=== PATIENT | male | born 1945 | race Caucasian/White ===

== ENCOUNTER 2017-01-01 11:06 | Inpatient (IN) | payer MEDICARE, OTHER ==
[~2017-01-01] VITALS: Ht 177.8 cm; Wt 88.9 kg
[2017-01-01] VITALS (20 sets, daily range): BP systolic 121–165; BP diastolic 62–97; PULSE 48–60; RESP 14–28; O2SAT 91–98
[~2017-01-01 11:06] MED LIST: AMIT10TA6 PO; ANTI1COM3 PO; ASCO-294 PO; ASPI-973 PO; ATEN100T PO; CHOL5000 PO; CYAN250010 PO; FLUT12AE8 IH; GLUC-180 PO; IPRA30SP8 NS; MECL-114 PO; METF500T4 PO; MULT1CAP33 PO; OMEP20TA86 PO; SOMA350 PO; UBID100T7 PO; [UNRECOGNIZED DRUG - CODE] PO
--- NOTE | 2017-01-01 11:27 | DRSVH ---
PROCEDURE: X-RAY CHEST ONE VIEW, PORTABLE ([id number]) INDICATIONS: CHEST PAIN TECHNIQUE: One view of the chest was acquired. COMPARISON: None. FINDINGS: Surgical changes and devices: None. Lungs and pleura: No pleural effusions or pneumothorax. Lungs are clear. Mediastinum: Mediastinal contours appear normal. Heart size is normal. Bones and chest wall: No suspicious bony lesions. Overlying soft tissues appear unremarkable. IMPRESSION: No acute pulmonary process. Dictated by: Brittany Larson M.D. on 01/01/2017 at 11:25 Approved by: Brittany Larson M.D. on 01/01/2017 at 11:25
[2017-01-01 11:30] LABS: BASOPHILS % (AUTO) 0.4 % (0-3); EOSINOPHILS % (AUTO) 3.5 % (0-5); MONOCYTES % (AUTO) 13.4 % (4-12); Mean Corpuscular Hemoglobin 30.9 pg (27.0-35.0); Mean Corpuscular Volume 87.7 fL (81-100); NEUTROPHILS % (AUTO) 67.8 % (40-74); Platelet Count 151 bil/L (150-400)
--- NOTE | 2017-01-01 11:36 | ED.REPORT ---
HPI-Chest Pain 40 and Over Date of Service Jan 01, 2017 ED Provider: Andrea Obrien MD Patient is a 71 year old male with a history of CHF, stent placement, CAD, hypertension, diabetes who presents to the ED via EMS due to an abnormal EKG. He complains of chest pain 2 days ago, dyspnea with exertion and nausea. Patient denies fever. The patient states that the pain lasted multiple minutes but resolved with rest. Patient was seen by his primary care physician earlier today who recommended he come to the ED due to his abnormal EKG. The patient states that he has not experienced another episode of chest pain since then and is currently pain free. Prior to arrival to the ED, the patient was given ASA at 1030. Nursing Notes Stated Complaint: CHEST PAIN Chief Complaint: Chest Pain Nursing Notes Reviewed: Yes Allergies: Coded Allergies: Qsqhcsg-Yqc-Ljv Reductase Inhibitor (Verified Adverse Reaction, Severe, MYALGIAS, 01/01/17) lisinopril (Unverified Adverse Reaction, Severe, COUGH, 01/01/17) lovastatin (Unverified Adverse Reaction, Severe, MYALGIAS, 01/01/17) Scheduled Alirocumab (Praluent Pen) 75 Mg/Ml Pen.injctr 75 MG SQ [id number] Antiox#12/Om3/Dha/Epa/Lut/Zean (Macular Benefits Combo Pack) 1 Each Combo..pkg 2 TAB PO BID Ascorbate Calcium (Vitamin C) 500 Mg Tablet 500 MG PO DAILY Aspirin (Aspirin) 81 Mg Tablet 81 MG PO DAILY Atenolol (Atenolol) 100 Mg Tablet 100 MG PO DAILY Cholecalciferol (Vitamin D3) (Vitamin D3) 5,000 Unit Tablet 5,000 UNIT PO DAILY Cyanocobalamin (Vitamin B-12) (Vitamin B12) 2,500 Mcg Tablet 2,500 MCG PO DAILY Disopyramide ER (Norpace CR) 150 Mg Capcr 150 MG PO BID Fluticasone Propionate (Flovent HFA 110 mcg) 12 Gm Aer.w.adap 1 PUFF IH BID Glucosamine HCl/MSM (Glucosamine MSM Liquid) 480 Ml Liquid 480 ML PO DAILY Ipratropium Bantry (Ipratropium Bantry 0.03% Nasal) 30 Ml [place] 1 SPRAY NS BID Multivitamin (Multivitamins) 1 Each Capsule 1 EACH PO DAILY Omeprazole (Omeprazole) 20 Mg Tablet.dr 20 MG PO DAILY Triamcinolone Acetonide (Nasal Allergy) 55 Mcg [place] 2 SPRAYS NS BID Ubidecarenone (Coenzyme Q10) 100 Mg Tablet 300 MG PO DAILY Scheduled PRN Carisoprodol (Carisoprodol) 350 Mg Tab 350 MG PO QID PRN PRN For Pain Meclizine (Bonine) 25 Mg Tab.chew 25 MG PO TID PRN PRN migraine General Time Seen by MD: 11:05 Chief Complaint Chest pain Hx Obtained From: Patient, EMS Arrived By: Ambulance Sudden in Onset?: Yes Onset Occurred: 2 days ago Severity: Current: No pain currently Recent Healthcare: No recent doctor visit, No recent hospitalization Similar Sx Previous: Yes Past Medical History Past Medical History prostate cancer in remission Reports: Congestive heart failure, Coronary artery disease, Diabetes mellitus, Hypertension Past Surgical History stent placement Smoking History Never Smoker Ambulatory Status Independent Review of Systems Constitutional: Denies: Chills, Fever Respiratory: Denies: Non-productive cough, Shortness of breath, Wheezing Cardiovascular: Reports: Chest pain, Dyspnea on exertion GI: Reports: Nausea, Denies: Vomiting Musculoskeletal: Denies: Extremity pain Complete sys rev & neg: except as marked. Physical Exam Initial Vital Signs Vital Signs (First) Date Time Temp Pulse Resp B/P Pulse Ox O2 Delivery O2 Flow Rate FiO2 01/01/17 11:14 36.7 57 20 165/97 98 Room Air Initial VS: Reviewed General/Constitutional: Awake, Alert, No acute distress Respiratory / Chest: Atraumatic, Breath sounds NL, Breath sounds = bilat, No respiratory distress Cardiovascular: Heart rate NL, Regular rhythm, Heart sounds NL Abdomen: Atraumatic, Soft, Non-tender Lower Extremity / Pelvis / MS: Atraumatic, No edema Skin: Atraumatic, Color NL, No rash, Warm, Dry Neurologic: Oriented X3, Speech NL, No motor deficits, No sensory deficits Psychiatric: Affect NL, Mood NL Head / Eyes: Atraumatic, Normocephalic, PERRL, EOMI Upper Extremity / MS: Atraumatic, Full range of motion Interpretation & Diagnostics Lab Results Interpretation Result Diagram: 01/01/17 1123 01/01/17 1123 Test 01/01/17 11:23 White Blood Count 7.0th/mm3 (3.8-10.1) Red Blood Count 4.88mil/mm3 (4.40-5.80) Hemoglobin 15.1g/dL (13.8-17.2) Hematocrit 42.8% (41.0-50.0) Mean Corpuscular Volume 87.7fL (81-100) Mean Corpuscular Hemoglobin 30.9pg (27.0-35.0) Mean Corpuscular Hemoglobin Concent 35.3% (32.0-37.0) Red Cell Distribution Width 13.1% (12.3-15.4) Platelet Count 151bil/L (150-400) Neutrophils (%) (Auto) 67.8% (40-74) Lymphocytes (%) (Auto) 14.0% (14-46) Monocytes (%) (Auto) 13.4% (4-12) Eosinophils (%) (Auto) 3.5% (0-5) Basophils (%) (Auto) 0.4% (0-3) Sodium Level 141mEq/L (134-144) Potassium Level 4.4mEq/L (3.5-5.2) Chloride Level 104mEq/L (97-108) Carbon Dioxide Level 22mmol/L (18-29) Blood Urea Nitrogen 24mg/dL (8-27) Creatinine 0.88mg/dL (0.76-1.27) Estimat Glomerular Filtration Rate 91mL/min (>59) Glucose Level 109mg/dL (60-99) Calcium Level 9.0mg/dL (8.5-10.1) Magnesium Level 2.2mg/dL (1.6-2.6) Total Bilirubin 0.5mg/dL (0.0-1.2) Aspartate Amino Transf (AST/SGOT) 35U/L (0-50) Alanine Aminotransferase (ALT/SGPT) 33U/L (0-44) Alkaline Phosphatase 86U/L (25-160) Troponin T 0.243ug/L (0.0-0.011) Total Protein 5.8g/dL (6.4-8.4) Albumin 3.8g/dL (3.4-5.0) Hold Lehman Top Tube Received (Received) ECG Interpretation ECG Interpretation: probable left atrial enlargement abnormal T, consider ischemia, anterolateral leads prolonged QT interval Time: 11:11 Interpreted by: ED physician Normal ECG Interpretation: Normal rate (56), Normal sinus rhythm X-Ray Chest Interpretation Chest Xray Interpretation: IMPRESSION: No acute pulmonary process. Dictated by: Brittany Larson M.D. on 01/01/2017 at 11:25 Approved by: Brittany Larson M.D. on 01/01/2017 at 11:25 View: Portable, 1 view Interpretation / Wet Read by: Interpret - Radiologist Re-Eval/Medical Decision Time of Eval: 12:19 Re-Evaluation/Progress Note: Discussed lab results and elevated trop. Discussed plan for admit. Patient understands and agrees to plan. All questions were addressed. Consultation #1: Referral / Consult Name: Emanuel Perea MD Consulted With: Cardiology Call Returned at: 11:45 Command Center Officer: Agrees with eval, Agrees with plan Consultation #2: Referral / Consult Name: Emanuel Perea MD Consulted With: Cardiology Call Returned at: 12:22 Command Center Officer: Agrees with eval, Agrees with plan Note: Consult with Dr. Castellanos, who agrees that the patient should be heparinized and given Plavix. Will consult once patient is admited with the hosptialist Consultation #3: Referral / Consult Name: David Navas MD Consulted With: Hospitalist Call Returned at: 13:05 Command Center Officer: Agrees with eval, Agrees with plan, Accepts admit Counseled Regarding: Diagnosis, Lab results, Need for admission Discharge & Departure Primary Impression: NSTEMI (non-ST elevated myocardial infarction) Additional Impression: Elevated troponin Disposition: ADMITTED TO HOSPITAL Discharge Condition All VS Reviewed: Yes Condition: Stable Referrals: Josesito Lorenzo MD (PCP) Jessica Attestation Portions of this note were transcribed by Ella Edward. I, Dr. Obrien personally performed the history, physical exam and medical decision-making; I reviewed and confirmed the accuracy of the information in the transcribed note. Signed by: Jessica Soliman, 01/01/17 and 1220 copies to: Josesito Lorenzo MD, Kirk H MD Jan 01, 2017 11:36 Elsy Edward Jan 01, 2017 11:37
[2017-01-01 12:14] LABS: Magnesium 2.2 mg/dL (1.6-2.6)
[2017-01-01 12:18] LABS: TROPONIN T 0.243 ug/L (0.0-0.011)
[2017-01-01] MEDS ORDERED: HYDROcodone-APAP 10-325 mg PO ONE (12:25)
[2017-01-01] MEDS ORDERED: Heparin 5,000 Unit/mL Inj IVPUSH PRN ×2 (12:25→14:45)
[2017-01-01] MEDS ORDERED: Heparin 25K Unit/500mL 0.45 NS 25,000 UNIT in IV Premix 1 EACH IV SCH ×2 (12:25→14:45)
[2017-01-01] MEDS ORDERED: Heparin 5,000 Unit/mL Inj IVPUSH ONE (12:25)
[2017-01-01] MEDS ORDERED: TRIA16.96 NS (13:05)
[2017-01-01] MEDS ORDERED: ALIR75PE SQ (13:05)
[2017-01-01] MEDS ORDERED: GLUC480L3 PO (13:05)
[2017-01-01] MEDS ORDERED: ANTI1COM3 PO (13:08)
[2017-01-01] MEDS ORDERED: CHOL500011 PO (13:08)
[2017-01-01] MEDS ORDERED: oxyCODONE-Acetamin 10-325 mg Tablet PO ONE (13:50)
[2017-01-01] MEDS ORDERED: Atropine 1 mg/10 mL (Code) Syringe IVPUSH PRN (14:00)
[2017-01-01] MEDS ORDERED: Alum-Mag Hydrox-Simeth 30 mL Suspension PO PRN (14:00)
[2017-01-01] MEDS ORDERED: Ondansetron 2 mg/mL 2 mL Inj IVPUSH PRN (14:00)
[2017-01-01] MEDS ORDERED: Polyethylene Glycol (PEG) 17 Gm Powder PO PRN (14:00)
[2017-01-01] MEDS ORDERED: Senna-Docusate 8.6-50 mg Tablet PO PRN (14:00)
--- NOTE | 2017-01-01 14:53 | PCM.HPMED ---
Subjective Date of Service Jan 01, 2017 Primary Provider: Admitting Physician: David Navas MD Primary Care Physician: Josesito Lorenzo MD Attending Physician: David Navas MD Admit Status: From the Emergency Department, Admit to [facility] Team Chief Complaint: Abnormal EKG History of Present Illness: Anatoly Mendenhall is a 71 year old male with a history of CHF, CAD s/p stent placement (2011), hypertension, and diabetes who was sent to the ED via EMS from his PCP office for an abnormal EKG. He complains of intermittent, burning chest pain across his chest 2 days ago. The pain started on Saturday, but got worse on Saturday afternoon. He describes the pain as burning and nonradiating. He was walking at the onset of the pain. He also reports exertional dyspnea, diaphoresis, nausea, and vomiting on Saturday. The pain lasted an hour and resolved with rest. He has been pain free for 2 days, but still has exertional dyspnea, which is worse than his baseline. Patient was seen by his primary care physician earlier today who recommended he come to the ED due to his abnormal EKG. The patient states that he has not experienced another episode of chest pain since Saturday and is currently pain free. Prior to arrival to the ED, the patient was given ASA at 1030. He denies cough, dizziness, headache, fever, chills, confusion, or focal weakness. Of note, he injured his left foot a week ago and has had some swelling and pain there. The XR of the foot was negative for fracture and he reports improvement of the swelling and pain. He uses some old Percocet he had at home and it helps the pain. He currently reports some tingling/hot sensation in the left foot. In the ED, vital signs were stable. CBC and CMP normal. Troponin was 0.243. EKG showed normal rate and rhythm, but there is abnormal T waves that are concerning for ischemia in the anterolateral leads. CXR normal. Cardiology was consulted, and do not recommend an urgent cath at this time. They recommend aspirin, Plavix, and Heparin gtt, which were initiated in the ER. Review of Systems: All else reviewed and otherwise unremarkable except as noted in the history of present illness. Allergies Coded Allergies: Vkssgev-Coj-Itz Reductase Inhibitor (Verified Adverse Reaction, Severe, MYALGIAS, 01/01/17) lisinopril (Unverified Adverse Reaction, Severe, COUGH, 01/01/17) lovastatin (Unverified Adverse Reaction, Severe, MYALGIAS, 01/01/17) Home Medications Alirocumab (Praluent Pen) 75 Mg/Ml Pen.injctr 75 MG SQ [id number] Antiox#12/Om3/Dha/Epa/Lut/Zean (Macular Benefits Combo Pack) 1 Each Combo..pkg 2 TAB PO BID Ascorbate Calcium (Vitamin C) 500 Mg Tablet 500 MG PO DAILY Aspirin (Aspirin) 81 Mg Tablet 81 MG PO DAILY Atenolol (Atenolol) 100 Mg Tablet 100 MG PO DAILY Cholecalciferol (Vitamin D3) (Vitamin D3) 5,000 Unit Tablet 5,000 UNIT PO DAILY Cyanocobalamin (Vitamin B-12) (Vitamin B12) 2,500 Mcg Tablet 2,500 MCG PO DAILY Disopyramide ER (Norpace CR) 150 Mg Capcr 150 MG PO BID Fluticasone Propionate (Flovent HFA 110 mcg) 12 Gm Aer.w.adap 1 PUFF IH BID Glucosamine HCl/MSM (Glucosamine MSM Liquid) 480 Ml Liquid 480 ML PO DAILY Ipratropium Knott (Ipratropium Knott 0.03% Nasal) 30 Ml [place] 1 SPRAY NS BID Multivitamin (Multivitamins) 1 Each Capsule 1 EACH PO DAILY Omeprazole (Omeprazole) 20 Mg Tablet.dr 20 MG PO DAILY Triamcinolone Acetonide (Nasal Allergy) 55 Mcg [place] 2 SPRAYS NS BID Ubidecarenone (Coenzyme Q10) 100 Mg Tablet 300 MG PO DAILY Scheduled PRN Carisoprodol (Carisoprodol) 350 Mg Tab 350 MG PO QID PRN PRN For Pain Meclizine (Bonine) 25 Mg Tab.chew 25 MG PO TID PRN PRN migraine PMH Prostate cancer in remission, Congestive heart failure, Coronary artery disease , Diabetes mellitus, Hypertension Surgical History Cardiac stent placement Prostate surgery Cholecystectomy Family History Father with heart attack at 62yo. Social History Hx Alcohol Use: Yes ("some" "not very much") Hx Substance Use: No Hx Tobacco Use: No Smoking Status: Never Smoker Living Arrangement: with Family Exam Vital Signs Vital Sign - Last Date Time Temp Pulse Resp B/P Pulse Ox O2 Delivery O2 Flow Rate FiO2 01/01/17 12:41 36.8 53 18 141/81 97 Room Air Exam General: Alert, Oriented X3, Cooperative, No acute distress Head: Normocephalic, atraumatic. External ears normal. Eyes: PERRLA, EOMI. Anicteric sclerae. Mouth: Mouth normal, Mucous membranes moist/pink Neck: Neck supple with full range of motion. Chest& Lungs: Clear to auscultation bilaterally with no crackles, wheezes, or rhonchi. Cardiovascular: Regular rate/rhythm, Normal S1, Normal S2, No murmurs/rubs/ gallops Abdomen: Non-tender, Non-distended, No masses, Normoactive bowel tones, Soft Musculoskeletal: Normal range of motion Extremities: Moderate pitting edema in the left ankle and foot. Ecchymoses on the bottom of the left foot and toes. No cyanosis/clubbing/edema in the right foot. Neurological: Grossly neurologically intact. Normal speech Lymph: no cervical or supraclavicular lymphadenopathy Lab and Diagnostics Result Diagram: 01/01/17 1123 01/01/17 1123 X-Rays, CTs and MRIs PROCEDURE: X-RAY CHEST ONE VIEW, PORTABLE IMPRESSION: No acute pulmonary process. Dictated by: Brittany Larson M.D. on 01/01/2017 at 11:25 12-lead ECG Normal rate (56) and rhythm. probable left atrial enlargement abnormal T, consider ischemia, anterolateral leads prolonged QT interval Assessment & Plan 71 year old male with a history of CHF, CAD s/p stent placement (2011), hypertension, and diabetes who was sent to the ED via EMS from his PCP office for an abnormal EKG.. Admitted for NSTEMI. # NSTEMI. Present on admission. - Patient's last episode of chest pain was 2 days ago. He is currently pain free. - EKG shows abnormal T wave in the anterolateral leads. Troponin 0.243. Hx of CAD stent placement in 2011. Normal Echo and Echo stress test in 01/2016. - Cardiology consulted, will see him in the AM, do not recommend urgent catheterization. - Will continue aspirin and heparin per Cardiology recommendations. Plavix loading dose given in the ER. - Heparin gtt cardiac protocol - Aspirin 81 mg daily - Plavix 75mg daily - Patient is allergic to statin and takes alirocumab at home. Will continue this. - Nitro and morphine PRN - Resume home Atenolol and Disopyramide - hgba1c and lipid panel pending # Type 2 diabetes mellitus - A1c ordered - Patient was on Metformin before, but has been off it for awhile. Last A1c is 6.1 per the patient. - Humalog low dose correctional scale. # Hypertension, chronic. - Resume home Atenolol and Disopyramide # Left leg pain and swelling. - resume home Carisoprodol. - Percocet 5mg available PRN # GERD, chronic. - Patient takes Omeprazole 20mg daily at home. Will change to Protonix 20mg in the hospital. - Bowel regimen as needed - Antiemetic as needed Patient is admitted under inpatient status with expected length of stay greater than 2 midnights due to severity of presenting symptoms, risk of adverse event, and complexity of treatment plan. Pain Evaluation: Adequate Pain Control GI Prophylaxis: Proton Pump Inhibitor VTE Prophylaxis: Sub-Q Heparin (Unfractionated) Resuscitation Status: CPR: Attempt Resuscitation Time spent 50 min Attending Statement Patient seen and examined with house staff. Agree with all attached documentation. I Tawana Ordoñez DO Jan 01, 2017 14:53 David Navas MD Jan 02, 2017 13:17
[2017-01-01] MEDS ORDERED: Glucose 40% Oral Gel 15 Gm Tube PO PRN (15:05)
[2017-01-01] MEDS: Sodium Chloride LOK Flush 10 mL Syringe IVFLUSH SCH (16:10)
[2017-01-01] MEDS: 0.9% Sodium Chloride 1,000 ML IV SCH (16:10)
[2017-01-01] MEDS: Insulin LISPRO 300 Unit/3 mL Inj SUBQ SCH ×2 (16:16→21:54)
[2017-01-01] MEDS ORDERED: Heparin 1,000 Units/500 mL NS Premix IV ONE (16:22)
[2017-01-01] MEDS ORDERED: 0.9% Sodium Chloride 1,000 ML ONE (16:22)
[2017-01-01] MEDS ORDERED: Heparin 10,000 Unit/1,000 mL NS Premix IV ONE (16:22)
[2017-01-01] MEDS ORDERED: Nitroglycerin 50,000 mcg/250 mL D5W Premix IV ONE (17:00)
[2017-01-01] MEDS ORDERED: Verapamil 2.5 mg/mL 2 mL Inj ONE (17:01)
[2017-01-01] MEDS ORDERED: Heparin 1,000 Unit/mL 10 mL Inj ONE (17:09)
[2017-01-01] MEDS ORDERED: fentaNYL-PF 50 mCg/mL 2 mL Inj ONE (17:09)
--- NOTE | 2017-01-01 17:47 | CONS ---
[address] [address] CARDIOLOGY INPATIENT CONSULTATION REPORT PATIENT: SHANDA BLAKE : 1945 MR#: [id number] ADMIT: 01/01/2017 JOB ID: [id number] DATE OF SERVICE: 01/01/2017 HISTORY OF PRESENT ILLNESS: This is a very pleasant 71-year-old gentleman with a known history of hypertrophic obstructive cardiomyopathy as well as coronary artery disease whom Cardiology was asked to consult for his exertional chest discomfort, elevated troponin and EKG changes. The patient has a history of CAD with previous coronary angiography and stenting (BMS)of obtuse marginal branch of his circumflex artery for symptoms of progressive exertional angina in 2011. Recently, the patient was seen in cardiology office by his mandrel cleaner, Dr. Adams on December 26, 2016. The patient was feeling well and there were no changes made to his medical therapy, and he was actually scheduled to be seen in one year followup. The patient tells me that last , December 27, 2016, he went to [employer] and he just came from [place] yesterday on December 31. On Saturday, on December 28, he was at a car show walking around. He suddenly developed slight burning sensation in the middle of his chest not radiating anywhere, not aggravated with any deep breathing; the chest symptoms got worth with further walking and actually became intense It was pretty intense and he went to his room and he rested and the burning sensation in his chest subsided substantially in 1 hour. He did not feel any shortness of breath. He did not feel nauseated at that time and did not feel clammy. This exertional burning sensation in his chest later continued on and off actually all Saturday and Saturday and symptoms were getting better with the rests. On Saturday (12/29/2016) in the evening, when he had another episode of his burning sensation in his chest, he felt clammy and he actually had one episode of vomiting also. He cannot tell me exactly if he had a period free of any chest discomfort. He never went to ER there. On Saturday (12/30/2016) and next day on Saturday, he did not have any chest discomfort or burning sensation anymore, but he noted that he was experiencing some noticeable shortness of breath with walking. The exertional burning sensation in his chest is not new for him. He used to get this in the past, but he states that last three months or so, he has not been experiencing it at all. Also, he tells me that in the past when he had this burning sensation in his chest, it was less pronounced comparing what he experienced on Saturday and on Saturday, which was much more intense. He denies having any palpitations, dizziness, or lightheadedness, any presyncopal or syncopal episodes. Today in the morning he called and saw PCP, they did EKG which showed some change, EKG was faxed to our cardiology office and it was reviewed the patient was advised to go to ER. When I looked at the patient, he also had bruising and swelling of his left leg and foot. So, when I asked him, the patient teold me that last Saturday, one week ago, he actually fell in a hole in his yard and it was a pretty deep hole, it was up to his waist and he damaged his left leg and it got bruised and swollen. He denies any history of tobacco use. He drinks two cans of beer once a week, sometimes rarely he drinks 1 shot of whiskey. Actually last one shot of whiskey he had last Saturday while having this burning sensation in the chest going on. He denies recreational drug use. He also has history of hypertension, diabetes, dyslipidemia. REVIEW OF SYSTEMS: Twelve points of review of systems negative except the ones mentioned in HPI. PAST SURGICAL HISTORY: He tells me that he sandee a prostatectomy done in 1989. Cholecystectomy done five or 10 years ago. He cannot tell me exactly when. PHYSICAL EXAMINATION: VITAL SIGNS: Blood pressure 158/53 mmHg, temperature 36.9 Celsius. His pulse is 55 beats per minute. His saturation by pulse oximetry shows 95% at room air. GENERAL: No acute distress, sitting on the bed comfortably, cooperative. HEENT: Sclerae anicteric, mucous membranes moist. NECK: Supple. No thyromegaly. LUNGS: Normal breathing sounds bilaterally. No crackles, no wheezing. CARDIAC: Regular rate and rhythm, normal S1, S2. No murmur appreciated, no JVP elevated. VASCULAR: No carotid bruits appreciated. EXTREMITIES: Bruised and edematous 1+ pitting edema on the left leg and foot, no edema on the right leg. ABDOMEN: Nontender with palpation. NEURO: Alert and oriented x3, no gross abnormalities. LABS: White blood cells 7.0, red blood cells 4.88, hemoglobin 15.1, hematocrit 42.8, and platelets 151. Sodium 141, potassium 4.4, chloride 104, carbon dioxide 22, BUN 24, creatinine 0.88, magnesium 2.2. Glucose 109, total bilirubin 0.5, AST 35, ALT 33, alkaline phosphatase 86, troponin T elevated at 0.243. The patient had an echo done on February 01, 2016 which showed preserved cardiac function with ejection fraction of 70% to 75% without focal wall motion abnormalities. There was mild asymmetric left ventricular hypertrophy but no echo evidence for significant left ventricular outflow tract obstruction and no obvious systolic anterior motion of the mitral valve suggesting significant improvement since the previous study. Right ventricle was normal size with normal systolic function. The right ventricle systolic pressure was estimated at 34 mmHg assuming the right atrial pressure was 3 mmHg. Both atria were normal size. He had mild mitral regurgitation, mild tricuspid regurgitation and no significant valvular disease. The ascending aorta was moderately enlarged, and the aortic root and aortic arch were mildly enlarged. The patient had a coronary angiography done in September 15, 2015 for recurrent chest pain and it showed nonobstructive CAD with the patent stent in OM. ASSESSMENT AND PLAN: This is a 71-year-old gentleman with history of hypertrophic obstructive cardiomyopathy and coronary artery disease with history of stenting of obtuse marginal branch of his circumflex artery which was done in 2011, preserved cardiac function and no significant valvular heart disease who presented today at [facility] ED after recent episodes of angina and with an abnormal EKG concerning for ischemic changes in anterolateral leads and also with elevated troponin of 0.243. Currently, on presentation, he is chest pain-free. # Hwf-OU-qibyjzace myocardial infarction. The patient had episode of exertional angina and Currently pain-free. Like I said, on EKG there are changes concerning for ischemia in the anterolateral leads. He has elevated troponin. Discussed the case with mandrel cleaner, Dr. Emanuel Perea, and the plan is to proceed with coronary angiography with potential PCI today. The patient has normal kidney function. He is already on heparin drip and he already was given Plavix loading dose of Plavix 300 mg p.o He has been n.p.o. # Known coronary artery disease with stent placement to obtuse marginal branch of circumflex artery done in 2011. # Known hypertrophic obstructive cardiomyopathy. # Hypertension # Dyslipidemia His outpatient cardiac medications MEDICATION are : 1. Aspirin 81 mg daily. 2. Atenolol 100 mg daily. 3. Disopyramide 150 mg every 12 hours. The case was discussed with mandrel cleaner, Dr. Perea, who agreed with the assessment and plan. FRANNY
--- NOTE | 2017-01-01 18:01 | NUR ---
Arrived, Spray Gun Repairer Helper 1346 - Received report from Kaylin Rodgers RN in the ED. Called her a few minutes later to say that the room had been cleaned and was ready for the pt's arrival. 1435 - Called Jo Ann MACKEY from the [facility] programmer to confirm that he would be going to the [facility] programmer tonight. 1530 - He arrived to [facility] 2024 and was settled into his room. His Marine Service Station Attendant came by and prayed with him. Vitals were taken, telemetry placed, assessment completed. Noted that his left foot is bruised, swollen, has some abrasions, and is painful at times. He said he got this from his foot falling into a hole. Unable to complete H/P as he was going to the [facility] programmer. Medication req appears to be complete, but the brought in his medication which needs to be double checked with his medication req. His brought in his Power of Lane Attendant and Health Care Directive paperwork. Copies made to be placed in his chart. 165 - He left [facility] 2024 for the [facility] programmer. Two IVs present, his clothes were taken off, and he went to the bathroom. 180 - Just returned back to [facility] 2024 where he is being recovered by Jordyn Kan RN for the next hour or two.
--- NOTE | 2017-01-01 18:29 | CS94 ---
[address] [address] DIAGNOSTIC CARDIAC CATHETERIZATION PATIENT: SHANDA BLAKE : 1945 MR#: [id number] ADMIT: 01/01/2017 JOB ID: [id number] SERVICE DATE: 01/01/2017 PROCEDURE: Selective right and left coronary angiography, left heart catheterization. INDICATION: Acute coronary syndrome. PROCEDURAL DETAILS: The reader is referred to the procedure log for complete details. Briefly, it was done via right radial approach using a 6-Cameroonian sheath and a 5-Cameroonian Harlan catheter. Further details are enumerated in the procedure log to which the coders are referred. ANGIOGRAPHIC FINDINGS: 1. Left main: No significant disease. 2. LAD at the proximal segment just before the takeoff of the first major septal branch has an eccentric 50% to 60% lesion. Past the second diagonal, there is eccentric plaquing of about 30%. 3. Circumflex is free of any critical disease. 4. The right coronary artery is dominant. There is mild proximal ectasia. There is no critical stenosis. 5. Left heart catheterization revealed hyperdynamic LV with ejection fraction of around 65% to 70%. There was no gradient upon pullback. LVEDP was mildly elevated at around 27. In summary, this gentleman has no obvious culprit. There is some disease progression in his LAD. I would recommend nuclear stress testing and aggressive risk-factor monitor management. Given the patient's intolerance to statins, he might be an appropriate candidate for Praluent.
[2017-01-01] MEDS ORDERED: Ipratropium 0.03% 30 mL Nasal Spray Bottle NASAL PRN (20:30)
[2017-01-01] MEDS ORDERED: DISOPYRAMIDE 150 MG PO SCH (20:30)
[2017-01-01] MEDS: Fluticasone 100 mCg Inhaler INHALATION SCH (20:53)
[2017-01-01] MEDS: Fluticasone 0.05% 15 Spray/2 Gm 16 Gm Nasal Spray NASAL SCH (20:54)
[2017-01-01 23:11] LABS: APPEARANCE,URINE CLEAR (CLEAR,HAZY); COLOR,URINE YELLOW (YELLOW); OCCULT BLOOD,URINE NEGATIVE (NEGATIVE); PH,URINE 5.5 (5.0-8.0)
[2017-01-02] VITALS (7 sets, daily range): BP systolic 122–144; BP diastolic 66–78; PULSE 51–55; RESP 15–24; O2SAT 95–97
[2017-01-02] MEDS: Sodium Chloride LOK Flush 10 mL Syringe IVFLUSH SCH ×3 (00:05→18:12)
--- NOTE | 2017-01-02 00:06 | NUR ---
P: L foot aching I: elevation, ice pack, tylenol E: Effective. A/O, forgetful. Denies pain, dyspnea, N/V. R radial TR band removed and site soft, minimal serosang ooze. Dress site w/ 2x2. CDI. R radial pulse intact. Hand warm. Tele SB. Noropace held. BP stable. Stands to void via urinal. RA sat at rest 90-93%. Add 1 L NC, sats mid 90s. Pt not wanting to use home cpap....
--- NOTE | 2017-01-02 01:07 | NUR ---
Pt wants spouse to take home medications home in the AM. Placed in pt's closet. Home norpace sent to pharmacy for labeling and now in pt drawer for AM dose. HS dose held as Tele SB in the high 40s to 60. Stable BP.
[2017-01-02] MEDS: 0.9% Sodium Chloride 1,000 ML IV SCH ×2 (02:29→18:12)
[2017-01-02 04:57] LABS: Magnesium 2.1 mg/dL (1.6-2.6)
[2017-01-02 05:09] LABS: TROPONIN T 0.301 ug/L (0.0-0.011)
--- NOTE | 2017-01-02 05:43 | NUR ---
NOC activity Assume of care 0030. Pt has no complains of chest pain, sob, n/v or abd discomfort. Radial site no s/sx of bleeding. Distal extremities no tingling or burning. PO intake encouraged. Telemetry monitoring noted SB low 50's. Pt's VSS and has been afebrile.
[2017-01-02] MEDS: Pantoprazole 20 mg ER24 Tablet PO SCH (06:07)
[2017-01-02] MEDS: Insulin LISPRO 300 Unit/3 mL Inj SUBQ SCH ×4 (08:00→20:55)
[2017-01-02] MEDS: Fluticasone 0.05% 15 Spray/2 Gm 16 Gm Nasal Spray NASAL SCH ×2 (08:56→20:56)
[2017-01-02] MEDS: Fluticasone 100 mCg Inhaler INHALATION SCH ×2 (08:56→20:55)
--- NOTE | 2017-01-02 09:28 | NUR ---
Social Work: Initial Assessment Data: Pt is a 71 y/o female admitted for N Stemi. Pt's PCP is Dr Lorenzo, [facility]. EMR reviewed. Readmit score is 1, low. STRIPPING SHOVEL OILER met with pt and spouse at bedside, role explained. Pt states he and his live in [place] in a single story home with 5 stairs to enter. Pt has a cane a walker he rarely uses. Pt states he drives, has no hx of HH or SNF, no LTC or VA benefits, pt is not a caregiver. No d/c planning needs identified at this time. STRIPPING SHOVEL OILER will continue to follow if needs arise. Assessment: Pt who is independent at baseline. Plan: Pt will d/c home via POV when medically stable. No d/c planning needs identified at this time. STRIPPING SHOVEL OILER will continue to follow if needs arise. KAVON Sweeney Addendum: 01/02/17 at 0931 by RICHAR MACHUCA Amended: Links added.
[2017-01-02] MEDS: DISOPYRAMIDE 150 MG PO SCH ×2 (11:03→20:55)
--- NOTE | 2017-01-02 11:16 | PCM.DIMED ---
Discharge Instructions Date of Service Jan 02, 2017 Dates of Hospitalization Jan 01, 2017 at 13:47 Discharge Diagnosis Discharge Diagnosis # NSTEMI. Present on admission. Resolved. # Type 2 diabetes mellitus, diet controlled. Chronic. # Hypertension, chronic. # Left foot pain and swelling. # GERD, chronic. Diet Discharge Diet: Heart Healthy Activity Discharge Activity: No restrictions Call your provider Call your provider for: Shortness of breath, Bleeding, Chest pain, Vomitting, Weakness (unilateral) Patient Instructions Patient Instructions - Your chest pain and abnormal EKG were concerning for acute coronary syndrome. - Dr. Perea did the cardiac catherization, but did not find any obvious culprit for your symptoms. There is some progression of the plague in one of your heart arteries. It was 30% blocked last year and it is about 50% this year. However, there is no indication for stenting. - You will need to have a nuclear stress testing done as outpatient. Please follow up with your herb grower to have this schedule. - You need to continue with the current medication management. It is also recommended that you modify your daily life to decrease the cardiovascular risk. Avoid smoking, drinking alcohol, and eating fatty food. Exercise or walk daily as tolerated (when your left foot pain improves). - Follow up with your primary care doctor for the recent hospitalization. You should also talk to your doctor if the left foot pain persists. - Go to the ER if you develop severe chest pain, nausea, vomiting, lightheadedness, shortness of breath, or change in mental status. Follow-up Provider: Josesito Lorenzo MD Follow-up with PCP in: 1 week Provider: Sotero Adams MD Follow-up in: 2 weeks Tawana Ordoñez DO Jan 02, 2017 11:11 Follow-up in: 2 weeks Tawana Ordoñez DO Jan 02, 2017 11:11
--- NOTE | 2017-01-02 17:46 | PCM.PNMED ---
Subjective Date of Service Jan 02, 2017 Subjective Overnight: No acute event. Telemetry monitoring noted SB low 50's. Pt's VSS and has been afebrile. Today: Patient has no complaint. Cardiac catheterization findings were explained to him and his and they stated understanding. Pt has no complains of chest pain, sob, n/v, or abd discomfort. Radial site no sign of bleeding. Distal extremities no tingling or burning. Exam Vital Signs Vital Sign - Last Date Time Temp Pulse Resp B/P Pulse Ox O2 Delivery O2 Flow Rate FiO2 01/02/17 15:54 36.9 52 24 144/66 96 Room Air Intake and Output 01/01/17 01/01/17 01/02/17 Cumulative From/Thru 15:00 23:00 07:00 01/01/17 11:14 - 01/02/17 06:14 Intake Total 500 ml 500 ml Output Total 155 ml 155 ml Balance 345 ml 345 ml Intake Oral 240 ml 240 ml IV Total 260 ml 260 ml Output Urine Total 155 ml 155 ml # Bowel Movements 0 0 Exam General: Alert, Oriented X3, Cooperative, No acute distress Head: Normocephalic, atraumatic. External ears normal. Eyes: PERRLA, EOMI. Anicteric sclerae. Mouth: Mouth normal, Mucous membranes moist/pink Neck: Neck supple with full range of motion. Chest& Lungs: Clear to auscultation bilaterally with no crackles, wheezes, or rhonchi. Cardiovascular: Regular rate/rhythm, Normal S1, Normal S2, No murmurs/rubs/ gallops Abdomen: Non-tender, Non-distended, No masses, Normoactive bowel tones, Soft Musculoskeletal: Normal range of motion Extremities: Moderate pitting edema in the left ankle and foot. Ecchymoses on the bottom of the left foot and toes. No cyanosis/clubbing/edema in the right foot. Neurological: Grossly neurologically intact. Normal speech Lymph: no cervical or supraclavicular lymphadenopathy IVs and Medications Medications Reviewed: Medications were reviewed in detail Lab and Diagnostics Result Diagram: 01/02/1741901/02/17419 X-Rays, CTs and MRIs PROCEDURE: X-RAY CHEST ONE VIEW, PORTABLE IMPRESSION: No acute pulmonary process. Dictated by: Brittany Larson M.D. on 01/01/2017 at 11:25 12-lead ECG Normal rate (56) and rhythm. probable left atrial enlargement abnormal T, consider ischemia, anterolateral leads prolonged QT interval Assessment & Plan 71 year old male with a history of CHF, CAD s/p stent placement (2011), hypertension, and diabetes who was sent to the ED via EMS from his PCP office for an abnormal EKG. Admitted for NSTEMI. # NSTEMI. Present on admission. - Patient has been asymptomatic for 3 days. - EKG shows in the PCP office and ER showed abnormal T wave in the anterolateral leads. Troponin 0.243. Hx of CAD stent placement in 2011. Normal Echo and Echo stress test in 01/2016. - Cardiology consulted and performed catheterization yesterday 01/01, which showed some disease progression in his LAD (30% to 50% blockage). - Dr. Perea initially recommended nuclear stress testing as outpatient and aggressive risk-factor monitor management. However, he then changed the plan and would do a cardiac stent sometime today or tomorrow. - Will continue aspirin and Plavix. - Heparin gtt was discontinued after chemical processing laborer. - Patient is allergic to statin and takes alirocumab at home. Will continue this. - Nitro and morphine PRN - Resume home Atenolol and Disopyramide # Type 2 diabetes mellitus, diet controlled, stable. - A1c 6.1 - Patient was on Metformin before, but has been off it for awhile. - Humalog low dose correctional scale. # Hypertension, chronic. - Resume home Atenolol and Disopyramide # Left leg pain and swelling due to recently injury, POA, active. - resume home Carisoprodol. - Percocet 5mg available PRN - Follow up with PCP as outpatient. # GERD, chronic. - Patient takes Omeprazole 20mg daily at home. Will change to Protonix 20mg in the hospital. - Bowel regimen as needed - Antiemetic as needed Patient is admitted under inpatient status with expected length of stay greater than 2 midnights due to severity of presenting symptoms, risk of adverse event, and complexity of treatment plan. Dispo: likely be discharged tomorrow. No anticipated needs. GI Prophylaxis: Proton Pump Inhibitor VTE Prophylaxis: Sub-Q Heparin (Unfractionated) Resuscitation Status: CPR: Attempt Resuscitation Attending Statement Patient was seen and examined with house staff. Agree with all attached documentation. Tawana Ordoñez DO Jan 02, 2017 16:18 David Navas MD Jan 03, 2017 15:46
--- NOTE | 2017-01-02 19:29 | NUR ---
Activity Put pt on remote tele once a box became available and encouraged him to sit up for meals and ambulate. Cardiac: Pt denies CP, Tele: SR 50s. AM BP/HR meds delayed for possible stress test. Pt scheduled for angiogram with intervention for this afternoon, then changed to 01/03 AM. Resp: pt denies SOB, SPO2 high 90s on RA. GI/: pt denies n/v/d, tylenol given for foot pain. Neuro: A&Ox3. SABILLON
[2017-01-02] MEDS: Heparin 5,000 Unit/mL Inj SUBQ SCH (20:54)
[2017-01-03] VITALS (18 sets, daily range): BP systolic 125–162; BP diastolic 67–98; PULSE 50–58; RESP 11–20; O2SAT 93–97
[2017-01-03] MEDS: Sodium Chloride LOK Flush 10 mL Syringe IVFLUSH SCH ×3 (00:30→17:42)
[2017-01-03] MEDS: 0.9% Sodium Chloride 1,000 ML IV SCH ×3 (04:37→23:45)
[2017-01-03] MEDS: Pantoprazole 20 mg ER24 Tablet PO SCH (06:42)
--- NOTE | 2017-01-03 07:10 | NUR ---
Cardiac Pt denies CP throughout. Right wrist without apparent complications. NPO since mid-NOC anticipating heart cath if appropriate. No overt complications noted.
[2017-01-03] MEDS: Insulin LISPRO 300 Unit/3 mL Inj SUBQ SCH ×4 (08:00→22:00)
[2017-01-03] MEDS: Fluticasone 0.05% 15 Spray/2 Gm 16 Gm Nasal Spray NASAL SCH ×2 (08:30→20:44)
[2017-01-03] MEDS: Fluticasone 100 mCg Inhaler INHALATION SCH ×2 (08:33→20:44)
[2017-01-03] MEDS: DISOPYRAMIDE 150 MG PO SCH ×2 (08:34→20:44)
[2017-01-03] MEDS: Heparin 5,000 Unit/mL Inj SUBQ SCH ×2 (08:34→21:19)
[2017-01-03] MEDS ORDERED: 0.9% Sodium Chloride 1,000 ML ONE (08:47)
[2017-01-03] MEDS ORDERED: Heparin 1,000 Unit/mL 10 mL Inj ONE (08:47)
[2017-01-03] MEDS ORDERED: Heparin 1,000 Units/500 mL NS Premix IV ONE (08:47)
[2017-01-03] MEDS ORDERED: Heparin 10,000 Unit/1,000 mL NS Premix IV ONE (08:47)
[2017-01-03] MEDS ORDERED: Nitroglycerin 50,000 mcg/250 mL D5W Premix IV ONE (08:47)
[2017-01-03] MEDS ORDERED: fentaNYL-PF 50 mCg/mL 2 mL Inj ONE (09:52)
--- NOTE | 2017-01-03 10:58 | NUR ---
Received Received from recyclable materials sorter about 1040. Denies pain. VSS. Left groin with small amt tract ooze covered with ultrafoam and bio-occlusive dressing. Peripheral pulses palp. Groin precautions and orders reviewed and verbalizes understanding. Frequent reminders given. Family at bedside. Continue to monitor per orders.
--- NOTE | 2017-01-03 11:47 | DI95 ---
[address] [address] INTERVENTIONAL CARDIAC CATHETERIZATION PATIENT: SHANDA BLAKE : 1945 MR#: [id number] ADMIT: 01/01/2017 JOB ID: [id number] DATE OF SERVICE: PROCEDURE: Percutaneous intervention on the left anterior descending artery. INDICATION: Non STEMI ongoing EKG changes run with elevated troponin. HISTORICAL DETAILS: This gentleman had a diagnostic angiogram two days ago. He had a borderline lesion in his mid to proximal LAD. My initial plan was to manage him medically. My impression was that he had a left ruptured plaque that had sealed spontaneously. However, the patient had significant anterior ST changes on his EKGs. His troponin was elevated as well. In view of this, he was brought back to the catheter finisher and inspector. PROCEDURAL DETAILS: The reader and the coders are referred to the procedure log. Briefly, it was done via left femoral approach and micropuncture technique was used to access the femoral artery. A Voda 4 guide was used. A Runthrough wire was used to cross this lesion and then it was pre-dilated and stented. INTERVENTIONAL REPORT: The LAD was stented after predilatation with a 2.5 mm balloon with a 3.5 x 15 mm Xience drug-coated stent. The stent was post dilated with a 3.5 noncompliant balloon at up to 20 atmospheres. Final angiographic results were excellent. The patient is advised to stay on dual antiplatelet therapy for at least six months post procedure.
--- NOTE | 2017-01-03 14:15 | NUR ---
Transfer Assessment unchanged. Groin ooze marked on Ultrafoam and not changed for 1/2 hour. Tele SB. VSS. Taking po fluid well. Report to Ankit Galeana RN. Transported to 2024 via bed with in no distress at 1235. Bedside check done.
--- NOTE | 2017-01-03 14:33 | PCM.PNMED ---
Subjective Date of Service Jan 03, 2017 Subjective Kasys Mendenhall is a 71 year old man with a history of CHF, CAD s/p stent placement (2011), hypertension, and diabetes who was sent to the ED via EMS from his PCP office for an abnormal EKG. Admitted for NSTEMI. Overnight: No acute events. Today: The patient underwent stenting of his LAD this morning. The patient states that he is feeling better and is having less chest pain and less shortness of breath. He denies any bleeding from his groin. He does have some minimal grain pain. The remainder of ROS is negative except as noted above. Exam Vital Signs Vital Sign - Last Date Time Temp Pulse Resp B/P Pulse Ox O2 Delivery O2 Flow Rate FiO2 01/03/17 13:33 36.5 50 18 151/70 96 Room Air Intake and Output 01/02/17 01/02/17 01/03/17 Cumulative From/Thru 15:00 23:00 07:00 01/01/17 11:14 - 01/03/17 05:23 Intake Total 1600 ml 1216 ml 3316 ml Output Total 1550 ml 975 ml 2680 ml Balance 50 ml 241 ml 636 ml Intake Oral 1600 ml 200 ml 2040 ml IV Total 1016 ml 1276 ml Output Urine Total 1550 ml 975 ml 2680 ml # Bowel Movements 0 0 Exam General: Alert, Oriented X3, Cooperative, No acute distress Head: Normocephalic, atraumatic. External ears normal. Eyes: PERRLA, EOMI. Anicteric sclerae. Mouth: Mouth normal, Mucous membranes moist/pink Neck: Neck supple with full range of motion. Chest& Lungs: Clear to auscultation bilaterally with no crackles, wheezes, or rhonchi. Cardiovascular: Regular rate/rhythm, Normal S1, Normal S2, No murmurs/rubs/ gallops Abdomen: Non-tender, Non-distended, No masses, Normoactive bowel tones, Soft Musculoskeletal: Normal range of motion Extremities: Moderate pitting edema in the left ankle and foot. Ecchymoses on the bottom of the left foot and toes. No cyanosis/clubbing/edema in the right foot. Left groin with small bandage without hematoma at site of catheter entry. Neurological: Grossly neurologically intact. Normal speech Lymph: no cervical or supraclavicular lymphadenopathy Lab and Diagnostics Result Diagram: 01/03/17 0335 01/03/17 0335 X-Rays, CTs and MRIs PROCEDURE: X-RAY CHEST ONE VIEW, PORTABLE IMPRESSION: No acute pulmonary process. Dictated by: Brittany Larson M.D. on 01/01/2017 at 11:25 12-lead ECG Normal rate (56) and rhythm. probable left atrial enlargement abnormal T, consider ischemia, anterolateral leads prolonged QT interval Assessment & Plan Kassy Mendenhall is a 71 year old man with a history of CHF, CAD s/p stent placement (2011), hypertension, and diabetes who was sent to the ED via EMS from his PCP office for an abnormal EKG. Admitted for NSTEMI. NSTEMI. Present on admission. - Patient has been asymptomatic for 3 days. - EKG shows in the PCP office and ER showed abnormal T wave in the anterolateral leads. Troponin 0.243. Hx of CAD stent placement in 2011. Normal Echo and Echo stress test in 01/2016. - Cardiology consulted and performed catheterization yesterday 01/01, which showed some disease progression in his LAD (30% to 50% blockage) s/p stent. - Will continue aspirin and Plavix for at least 6 months. - Patient is allergic to statin and takes alirocumab at home. Will continue this. - Nitro and morphine PRN - Resume home Atenolol and Disopyramide Type 2 diabetes mellitus, diet controlled, stable. - A1c 6.1 - Patient was on Metformin before, but has been off it for awhile. - Humalog low dose correctional scale. Hypertension, chronic. - Resume home Atenolol and Disopyramide Left leg pain and swelling due to recently injury, POA, active. - resume home Carisoprodol. - Percocet 5mg available PRN - Follow up with PCP as outpatient. GERD, chronic. - Patient takes Omeprazole 20mg daily at home. Will change to Protonix 20mg in the hospital. - Bowel regimen as needed - Antiemetic as needed Patient is admitted under inpatient status with expected length of stay greater than 2 midnights due to severity of presenting symptoms, risk of adverse event, and complexity of treatment plan. Dispo: likely be discharged tomorrow. No anticipated needs. GI Prophylaxis: Proton Pump Inhibitor VTE Prophylaxis: Sub-Q Heparin (Unfractionated) Resuscitation Status: CPR: Attempt Resuscitation Attending Statement Patient seen and examined with house staff. Agree with DOCUMENTATION. Nathalia Santoro DO Jan 03, 2017 14:28 David Navas MD Jan 03, 2017 16:04
--- NOTE | 2017-01-03 17:28 | NUR ---
Heart Cath Cardiac: Pt denies CP, Tele: SR 50s. Pt off to dairy lab technician this AM at 09:15, back to room at 12:30. Pt off bedrest and ambulating in room. Left groin site closed with star close, minimal oozing, but no hematoma. Site is tender but soft to palpation, CMS intact. Resp: pt denies SOB, SPO2 high 90s on RA. GI/: pt denies n/v/d Neuro: A&Ox3. SABILLON
[2017-01-04] MEDS: Sodium Chloride LOK Flush 10 mL Syringe IVFLUSH SCH ×2 (01:16→08:30)
--- NOTE | 2017-01-04 02:07 | NUR ---
Nursing, NOC shift S/p L groin approach cath, left groin site w/ small amount purple bruising, no hematoma noted. dressing w/ small amt blood drainage, removed, area cleansed w/ NS/gauze. Area covered w/ 2x2 + tegaderm. Dsg remains CDI w/ no drainage. Tolerating amb in room, steady gait. PRN Soma given at HS for LE generalized pain. Resting comfortably thru NOC. BS at hs 109. VSS, tele SR/SB mid 50's. Anticipate d/c in AM. CTM for changes.
[2017-01-04 03:47] VITALS: BP 166/70; PULSE 55; RESP 16; O2SAT 96
[2017-01-04 05:27] VITALS: PULSE 53
[2017-01-04] MEDS: Pantoprazole 20 mg ER24 Tablet PO SCH (05:56)
[2017-01-04 08:00] VITALS: PULSE 58
[2017-01-04] MEDS: Insulin LISPRO 300 Unit/3 mL Inj SUBQ SCH (08:00)
[2017-01-04 08:14] VITALS: BP 133/84; PULSE 57; RESP 21; O2SAT 95
[2017-01-04] MEDS: Fluticasone 100 mCg Inhaler INHALATION SCH (08:24)
[2017-01-04] MEDS: Fluticasone 0.05% 15 Spray/2 Gm 16 Gm Nasal Spray NASAL SCH (08:24)
[2017-01-04] MEDS: DISOPYRAMIDE 150 MG PO SCH (08:26)
[2017-01-04] MEDS: Heparin 5,000 Unit/mL Inj SUBQ SCH (08:30)
--- NOTE | 2017-01-04 08:48 | PCM.DIMED ---
Tawana Ordoñez DO 01/04/17 0848: Discharge Instructions Date of Service Jan 04, 2017 Dates of Hospitalization Jan 01, 2017 at 13:47 Discharge Diagnosis Discharge Diagnosis # NSTEMI s/p stent. Present on admission. Resolved. # Type 2 diabetes mellitus, diet controlled. Chronic. # Hypertension, chronic. # Left foot pain and swelling. # GERD, chronic. Medication Instructions Additional med instructions No change in current medications. Diet Discharge Diet: Heart Healthy Activity Discharge Activity: No restrictions Call your provider Call your provider for: Shortness of breath, Bleeding, Chest pain, Vomitting, Weakness (unilateral) Patient Instructions Patient Instructions - Your chest pain and abnormal EKG were concerning for acute coronary syndrome. - Dr. Perea did the cardiac catheterization and found some progression of the plague in one of your heart arteries called left anterior descending artery (LAD ). It was 30% blocked last year and it is about 50% this year. Given your symptoms and EKG findings, a stent was placed in the LAD. - You need to continue with the current medication management. There is one new medication called Plavix that you will take one daily. I sent the prescription to your pharmacy ([facility]). - It is also recommended that you modify your daily life to decrease the cardiovascular risk. Avoid smoking, drinking alcohol, and eating fatty food. Exercise or walk daily as tolerated (when your left foot pain improves). - Follow up with your primary care 3-4 weeks. - You will need cardiac rehabilitation as outpatient to help you recover. - Go to the ER if you develop severe chest pain, nausea, vomiting, lightheadedness, shortness of breath, or change in mental status. Follow-up Provider: Josesito Lorenzo MD Follow-up with PCP in: 1 week Provider: Sotero Adams MD Follow-up in: 3 weeks David Navas MD 01/04/17 1249: Discharge Instructions Attending's Statement Patient was seen and examined with housestaff. Agree with all attached documentation. Tawana Ordoñez DO Jan 04, 2017 08:48 David Navas MD Jan 04, 2017 12:49
[2017-01-04] MEDS ORDERED: CLOP75TA28 PO (08:50)
[2017-01-04] MEDS: 0.9% Sodium Chloride 1,000 ML IV SCH (08:59)
[2017-01-04] MEDS ORDERED: ALIROCUMAB 75 MG SUBQ SCH (09:00)
--- NOTE | 2017-01-04 09:57 | PCM.DC.MED ---
Discharge Summary Date of Service Jan 04, 2017 Dates of Hospitalization Date of Hospital Admission Jan 01, 2017 at 13:47 Date of Discharge: Jan 04, 2017 Providers: Admitting Physician: David Navas MD Primary Care Physician: Josesito Lorenzo MD Attending Physician: David Navas MD Diagnosis at Time of Discharge Diagnosis at Time of Discharge # NSTEMI s/p stent. Present on admission. Resolved. # Type 2 diabetes mellitus, diet controlled. Chronic. # Hypertension, chronic. # Left foot pain and swelling. # GERD, chronic. Consultations Cardiology: Dr. Perea. Procedures XRay, CTs & MRIs PROCEDURE: X-RAY CHEST ONE VIEW, PORTABLE IMPRESSION: No acute pulmonary process. Dictated by: Brittany Larson M.D. on 01/01/2017 at 11:25 ECG 12 Lead Normal rate (56) and rhythm. probable left atrial enlargement abnormal T, consider ischemia, anterolateral leads prolonged QT interval Invasive Procedures Cardiac catheterization s/p stent placement in the LAD Brief History Anatoly Mendenhall is a 71 year old male with a history of CHF, CAD s/p stent placement (2011), hypertension, and diabetes who was sent to the ED via EMS from his PCP office for an abnormal EKG. He complains of intermittent, burning chest pain across his chest 2 days ago. The pain started on Saturday, but got worse on Saturday afternoon. He describes the pain as burning and nonradiating. He was walking at the onset of the pain. He also reports exertional dyspnea, diaphoresis, nausea, and vomiting on Saturday. The pain lasted an hour and resolved with rest. He has been pain free for 2 days, but still has exertional dyspnea, which is worse than his baseline. Patient was seen by his primary care physician earlier today who recommended he come to the ED due to his abnormal EKG. The patient states that he has not experienced another episode of chest pain since Saturday and is currently pain free. Prior to arrival to the ED, the patient was given ASA at 1030. He denies cough, dizziness, headache, fever, chills, confusion, or focal weakness. Of note, he injured his left foot a week ago and has had some swelling and pain there. The XR of the foot was negative for fracture and he reports improvement of the swelling and pain. He uses some old Percocet he had at home and it helps the pain. He currently reports some tingling/hot sensation in the left foot. In the ED, vital signs were stable. CBC and CMP normal. Troponin was 0.243. EKG showed normal rate and rhythm, but there is abnormal T waves that are concerning for ischemia in the anterolateral leads. CXR normal. Cardiology was consulted, and do not recommend an urgent cath at this time. They recommend aspirin, Plavix, and Heparin gtt, which were initiated in the ER. Hospital Course 71 year old man with a history of CHF, CAD s/p stent placement (2011), hypertension, and diabetes who was sent to the ED via EMS from his PCP office for an abnormal EKG. Admitted for NSTEMI. NSTEMI. Present on admission. - Patient has been asymptomatic for 3 days. - EKG shows in the PCP office and ER showed abnormal T wave in the anterolateral leads. Troponin 0.243. Hx of CAD stent placement in 2011. Normal Echo and Echo stress test in 01/2016. - Cardiology consulted and performed catheterization yesterday 01/01, which showed some disease progression in his LAD (30% to 50% blockage) s/p stent. - Will continue aspirin and Plavix for at least 6 months. - Patient is allergic to statin and takes alirocumab at home. Will continue this. - Nitro and morphine PRN - Resume home Atenolol and Disopyramide Type 2 diabetes mellitus, diet controlled, stable. - A1c 6.1 - Patient was on Metformin before, but has been off it for awhile. - Humalog low dose correctional scale. Hypertension, chronic. - Resume home Atenolol and Disopyramide Left leg pain and swelling due to recently injury, POA, active. - resume home Carisoprodol. - Percocet 5mg available PRN - Follow up with PCP as outpatient. GERD, chronic. - Patient takes Omeprazole 20mg daily at home. Will change to Protonix 20mg in the hospital. - Bowel regimen as needed - Antiemetic as needed Patient is admitted under inpatient status with expected length of stay greater than 2 midnights due to severity of presenting symptoms, risk of adverse event, and complexity of treatment plan. Dispo: likely be discharged tomorrow. No anticipated needs. Exam Vital Signs (Last) Date Time Temp Pulse Resp B/P Pulse Ox O2 Delivery O2 Flow Rate FiO2 01/04/17 08:14 37.2 57 21 133/84 95 Room Air Exam General: Alert, Oriented X3, Cooperative, No acute distress Head: Normocephalic, atraumatic. External ears normal. Eyes: PERRLA, EOMI. Anicteric sclerae. Mouth: Mouth normal, Mucous membranes moist/pink Neck: Neck supple with full range of motion. Chest& Lungs: Clear to auscultation bilaterally with no crackles, wheezes, or rhonchi. Cardiovascular: Regular rate/rhythm, Normal S1, Normal S2, No murmurs/rubs/ gallops Abdomen: Non-tender, Non-distended, No masses, Normoactive bowel tones, Soft Musculoskeletal: Normal range of motion Extremities: Moderate pitting edema in the left ankle and foot. Ecchymoses on the bottom of the left foot and toes. No cyanosis/clubbing/edema in the right foot. Left groin with small bandage without hematoma at site of catheter entry. Neurological: Grossly neurologically intact. Normal speech Test 01/01/17 11:23 01/01/17 22:55 01/02/17 04:20 01/02/17 10:50 White Blood Count 7.0th/mm3 (3.8-10.1) Red Blood Count 4.88mil/mm3 (4.40-5.80) Mean Corpuscular Volume 87.7fL (81-100) Mean Corpuscular Hemoglobin 30.9pg (27.0-35.0) Mean Corpuscular Hemoglobin Concent 35.3% (32.0-37.0) Red Cell Distribution Width 13.1% (12.3-15.4) Platelet Count 151bil/L (150-400) Neutrophils (%) (Auto) 67.8% (40-74) Lymphocytes (%) (Auto) 14.0% (14-46) Monocytes (%) (Auto) 13.4% (4-12) Eosinophils (%) (Auto) 3.5% (0-5) Basophils (%) (Auto) 0.4% (0-3) Hemoglobin A1c 6.1% (4.8-5.6) Hold Lehman Top Tube Received (Received) Urine Color Yellow (YELLOW) Urine Appearance Clear (CLEAR,HAZY) Urine pH 5.5 (5.0-8.0) Urine Specific [place] 1.010 (1.003-1.035) Urine Protein Negativemg/dL (NEG,TRACE) Urine Glucose (UA) Negativemg/dL (NEGATIVE) Urine Ketones Negativemg/dL (NEGATIVE) Urine Occult Blood Negative (NEGATIVE) Urine Nitrite Negative (NEGATIVE) Urine Bilirubin Negative (NEGATIVE) Urine Urobilinogen 1.0mg/dL (NORMAL) Urine Leukocyte Esterase Negative (NEGATIVE) Urine RBC 0-2/hpf (0-2) Urine WBC 0-5/hpf (0-5) Urine Epithelial Cells None/hpf (NONE-MOD) Urine Crystals None seen (NONE SEEN) Urine Bacteria None/hpf (NONE-FEW) Urine Hyaline Casts None/lpf (NONE) Urine Granular Casts None seen (NONE SEEN) Urine Waxy Casts None seen (NONE SEEN) Urine Red Blood Cell Casts None seen (NONE SEEN) Urine White Blood Cell Casts None seen (NONE SEEN) Urine Mucus None seen (None Seen) Urine Trichomonas None seen (NONE SEEN) Urine Yeast None (NONE SEEN) Urinalysis Comment None Urine Culture Reflexed Not indicated Magnesium Level 2.1mg/dL (1.6-2.6) Total Bilirubin 0.4mg/dL (0.0-1.2) Aspartate Amino Transf (AST/SGOT) 28U/L (0-50) Alanine Aminotransferase (ALT/SGPT) 29U/L (0-44) Alkaline Phosphatase 74U/L (25-160) Total Protein 5.4g/dL (6.4-8.4) Albumin 3.2g/dL (3.4-5.0) Triglycerides Level 278mg/dL (0-149) Cholesterol Level 100mg/dL (100-199) LDL Cholesterol, Calculated 6.400mg/dL (0-99) VLDL Cholesterol 55.600mg/dL HDL Cholesterol 38mg/dL (>39) Cholesterol/HDL Ratio 2.63 (0.0-4.4) Activated Partial Thromboplast Time 23.8sec (22.8-33.0) Test 01/02/17 15:45 01/03/17 03:35 01/04/17 03:20 Troponin T 0.337ug/L (0.0-0.011) Hemoglobin 14.5g/dL (13.8-17.2) Hematocrit 41.8% (41.0-50.0) Sodium Level 142mEq/L (134-144) Potassium Level 3.9mEq/L (3.5-5.2) Chloride Level 106mEq/L (97-108) Carbon Dioxide Level 23mmol/L (18-29) Blood Urea Nitrogen 16mg/dL (8-27) Creatinine 0.82mg/dL (0.76-1.27) Estimat Glomerular Filtration Rate 98mL/min (>59) Glucose Level 120mg/dL (60-99) Calcium Level 9.0mg/dL (8.5-10.1) Discharge Medications Discharge Medications Alirocumab (Praluent Pen) 75 Mg/Ml Pen.injctr 75 MG SQ [id number] (Reported) Antiox#12/Om3/Dha/Epa/Lut/Zean (Macular Benefits Combo Pack) 1 Each Combo..pkg 2 TAB PO BID (Reported) Ascorbate Calcium (Vitamin C) 500 Mg Tablet 500 MG PO DAILY (Reported) Aspirin (Aspirin) 81 Mg Tablet 81 MG PO DAILY (Reported) Atenolol (Atenolol) 100 Mg Tablet 100 MG PO DAILY (Reported) Cholecalciferol (Vitamin D3) (Vitamin D3) 5,000 Unit Tablet 5,000 UNIT PO DAILY (Reported) Clopidogrel (Clopidogrel) 75 Mg Tablet 75 MG PO DAILY Prescribed by: YESY MANZANARES DO Cyanocobalamin (Vitamin B-12) (Vitamin B12) 2,500 Mcg Tablet 2,500 MCG PO DAILY (Reported) Disopyramide ER (Norpace CR) 150 Mg Capcr 150 MG PO BID (Reported) Fluticasone Propionate (Flovent HFA 110 mcg) 12 Gm Aer.w.adap 1 PUFF IH BID ( Reported) Glucosamine HCl/MSM (Glucosamine MSM Liquid) 480 Ml Liquid 480 ML PO DAILY ( Reported) Ipratropium [place] (Ipratropium [place] 0.03% Nasal) 30 Ml [place] 1 SPRAY NS BID (Reported) Multivitamin (Multivitamins) 1 Each Capsule 1 EACH PO DAILY (Reported) Omeprazole (Omeprazole) 20 Mg Tablet.dr 20 MG PO DAILY (Reported) Triamcinolone Acetonide (Nasal Allergy) 55 Mcg [place] 2 SPRAYS NS BID (Reported) Ubidecarenone (Coenzyme Q10) 100 Mg Tablet 300 MG PO DAILY (Reported) As needed Carisoprodol (Carisoprodol) 350 Mg Tab 350 MG PO QID PRN PRN For Pain (Reported ) Meclizine (Bonine) 25 Mg Tab.chew 25 MG PO TID PRN PRN migraine (Reported) Followup Plan Disposition: Home Discharge Diet: Heart Healthy Discharge Activity: No restrictions Patient Instructions - Your chest pain and abnormal EKG were concerning for acute coronary syndrome. - Dr. Perea did the cardiac catheterization and found some progression of the plague in one of your heart arteries called left anterior descending artery (LAD ). It was 30% blocked last year and it is about 50% this year. Given your symptoms and EKG findings, a stent was placed in the LAD. - You need to continue with the current medication management. There is one new medication called Plavix that you will take one daily. I sent the prescription to your pharmacy ([facility]). - It is also recommended that you modify your daily life to decrease the cardiovascular risk. Avoid smoking, drinking alcohol, and eating fatty food. Exercise or walk daily as tolerated (when your left foot pain improves). - Follow up with your primary care 3-4 weeks. - You will need cardiac rehabilitation as outpatient to help you recover. - Go to the ER if you develop severe chest pain, nausea, vomiting, lightheadedness, shortness of breath, or change in mental status. Follow-up Provider: Josesito Lorenzo MD Follow-up with PCP in: 1 week Provider: Sotero Adams MD Follow-up in: 3 weeks Time spent 60 minutes Attending Statement Patient seen and examined with house staff. Agree with all attached documentation. copies to: Josesito Lorenzo MD, Ngochanh H DO Jan 04, 2017 09:57 David Navas MD Jan 07, 2017 07:45
--- NOTE | 2017-01-04 13:22 | NUR ---
Discharge Patient was discharged home today in stable condition. Patient denied having any pain, chest pain, shortness of breath. Patient was medicated with Tylenol PO for his left foot pain/discomfort earlier this morning and stated good pain relive. Patient and his verbalized understanding of verbal and written discharge home instructions regarding home medications, follow up appointments, activity restrictions, post heart cath puncture sides care, diet and when to call MD or 911. IV was removed intact prior to discharge. Patient ambulated and was able to void well prior to discharge. Right wrist and left groin post heart catheterization sides remained stable. Patient verbalized understanding of the need to drink adequate amounts of fluid after qc lab technician contrast especially when it is warm outside. Patient was taken to his 's car in a wheelchair.
== END 2017-01-04 11:00 | disposition home or self-care (01) | DRG 247 ==
LOC: EDBD 11:06 → SED 11:06 → PCC 13:47
PROVIDERS: ADMIT Hospitalist; ATTEND Hospitalist
PROC: 4A023N7 Measurement of Cardiac Sampling and Pressure, Left Heart, Percutaneous Approach (ICD-10-PCS; principal; 2017-01-01)
PROC: B2111ZZ Fluoroscopy of Multiple Coronary Arteries using Low Osmolar Contrast (ICD-10-PCS; 2017-01-01)
PROC: 027034Z Dilation of Coronary Artery, One Artery with Drug-eluting Intraluminal Device, Percutaneous Approach (ICD-10-PCS; 2017-01-03)
DX: I21.4 Non-ST elevation (NSTEMI) myocardial infarction (principal); I42.8 Other cardiomyopathies; I25.10 Atherosclerotic heart disease of native coronary artery without angina pectoris; I10 Essential (primary) hypertension; E11.9 Type 2 diabetes mellitus without complications; K21.9 Gastro-esophageal reflux disease without esophagitis; M79.662 Pain in left lower leg; Z95.5 Presence of coronary angioplasty implant and graft; E78.5 Hyperlipidemia, unspecified